=== PATIENT | male | born 1980 | race Caucasian/White ===

== ENCOUNTER 2021-07-26 07:40 | Emergency (ER) | payer BC, SELFPAY ==
--- NOTE | ~2021-07-26 | CT_ITS ---
EXAMINATION: CT abdomen pelvis wo con DATE: 07/26/2021 08:18 INDICATION: Right flank pain. Low back pain. TECHNIQUE: Computed tomography (CT) of the abdomen and pelvis was performed without intravenous contr ast. The dose-length product was 184.74 mGy-cm. Automated exposure control and iterative reconstructi on technique were employed. COMPARISON: None. FINDINGS: Lung bases are unremarkable. Heart size normal. No significant pleural or pericardial effus ion. The liver, spleen, pancreas, there is a distal right ureteral stone measuring 2 mm with mild hyd ronephrosis. There is a second calcification near the UVJ which may also represent a ureteral stone. Bowel gas pattern nonobstructive. There are nonobstructing bilateral renal stones. The liver, spleen, pancreas, adrenal glands are unremarkable. No lymphadenopathy. No significant vasc ular abnormality. There is scoliosis. IMPRESSION: 1. Distal right ureteral stone/s measuring 2 mm with mild right hydronephrosis. 2: Nonobstructing bilateral nephrolithiasis. Reviewed, dictated and finalized at location A.
--- NOTE | ~2021-07-26 | XR_ITS ---
XR abdomen/kub 1V 07/26/2021 09:04 Indication: Kidney stone Procedure: KUB Comparison: 07/26/2021 Findings: There is a small right renal stone. Bowel gas pattern nonobstructive. Lung bases unremarkab le. Mild levocurvature of the lumbar spine. No acute osseous abnormality. Impression: 1: Right nephrolithiasis. Reviewed, dictated and finalized at location A. Impression: 1: Right nephrolithiasis.
[2021-07-26 07:44] VITALS: BP 128/81; PULSE 62; RESP 16; TEMP 36.2; O2SAT 98
--- NOTE | 2021-07-26 07:55 | ED.BACK ---
HPI - Back Pain/Injury General Chief Complaint: Back Pain/Injury Stated Complaint: back pain/vomiting Time Seen by Provider: 07/26/21 07:43 History of Present Illness HPI Narrative: Patient presents emerged department from home for right flank pain. Patient states pain began suddenly while driving to work this morning. The pain is located in the right flank and rates in the right lower abdomen described as sharp and stabbing. Associated with nausea denies any vomiting diarrhea fevers or chills. States he has not anything for the pain denies any previous history of kidney stones Related Data Allergies Allergy/AdvReac Type Severity Reaction Status Date / Time No Known Allergies Allergy Verified 07/26/21 07:44 Review of Systems Review of Systems: Gen.: Denies fevers or chills ENT: Denies congestion Respiratory: Denies shortness of breath or cough CV: Denies chest pain or palpitations GI: See HPI denies burning, urgency, frequency or hematuria Musculoskeletal: Reports right-sided back pain, denies muscle pain Neuro: Denies numbness, tingling, weakness or focal weakness Skin: Denies rash Except as documented, all other systems reviewed and negative [facility] Past Medical History Medical History (Updated 07/26/21 @ 10:16 by Adrian Kirby DO) Patient denies significant medical history Social History Social History (Updated 07/26/21 @ 07:56 by Adrian Kirby DO) Smoking status: Never smoker Exam Narrative: APPEARANCE: No acute distress, nontoxic, resting in bed EYES: EOMI HEENT: Normocephalic, atraumatic, OMM RESPIRATORY: No respiratory distress Clear to auscultation bilaterally with no rhonchi wheezing or rales. CARDIOVASCULAR: Regular rate and rhythm without murmurs rubs or gallops. ABDOMINAL: Soft, nondistended tender palpation right upper quadrant right lower quadrant no tenderness left upper quadrant left lower quadrant no rebound or guarding, right flank tenderness MUSCULOSKELETAl: Moves all extremities. No clubbing, cyanosis or edema. NEURO: Awake and alert. Following commands, speech normal, no focal deficits SKIN:: Warm, dry. No rashes lesions or abrasions PSYCHIATRIC: Normal affect/mood, Course Course Emergency Course: Patient states he is feeling much better at this time Discussed with patient results of workup and diagnosis. Discussed need for follow-up with primary care, proper use of medication, and reasons to return to the emergency department. Patient understands and agrees to current treatment plan Vital Signs Vital signs: Vital Signs Temperature 97.2 F L 07/26/21 07:44 Pulse Rate 62 07/26/21 07:44 Respiratory Rate 16 07/26/21 07:44 Blood Pressure 128/81 07/26/21 07:44 Pulse Oximetry 98 07/26/21 07:44 Temperature 97.2 F L 07/26/21 07:44 Pulse Rate 84 07/26/21 09:19 Respiratory Rate 13 07/26/21 09:19 Blood Pressure 124/79 07/26/21 08:50 Pulse Oximetry 99 07/26/21 09:19 MDM - Back Pain/Injury Lab Data Result diagrams: 07/26/21 07:50 07/26/21 07:50 Labs: Lab Results 07/26/21 07/26/21 07/26/21 Range/Units 07:50 07:50 09:18 WBC 8.5 (4.5-10.0) K/mm3 RBC 4.61 (4.6-6.20) M/mm3 Hgb 14.7 (14.0-18.0) g/dL Hct 44.1 (42.0-52.0) % MCV 95.7 (80-100) fl MCH 31.9 (26-34) pg MCHC 33.3 (32-36) g/dl RDW 12.4 (11.5-14.5) % Plt Count 317 (150-375) k/mm3 MPV 9.7 (7.4-10.4) fl Immature Gran % (Auto) 0.4 (0-0.5) % Neut % (Auto) 57.8 (45.5-73.1) % Lymph % (Auto) 28.8 (18.3-44.2) % [place] % (Auto) 9.3 H (2.6-8.5) % Eos % (Auto) 2.6 (0-4.4) % Baso % (Auto) 1.1 (0.2-1.2) % Lymph # (Auto) 2.44 (0.9-3.2) K/mm3 Fallon # (Auto) 0.8 H (0.1-0.6) K/mm3 Eos # (Auto) 0.2 (0-0.3) K/mm3 Baso # (Auto) 0.1 (0.0-0.1) K/mm3 Abs Immat Gran (auto) 0.03 (0.00-0.031) K/mm3 Absolute Neuts (auto) 4.9 (1.3-6.7) K/mm3 Absolute Nucleated RBC 0
[2021-07-26 07:58] LABS: Basophils Absolute Auto 0.1 K/mm3 (0.0-0.1); Basophils Percent Auto 1.1 % (0.2-1.2); Eosinophils Absolute Auto 0.2 K/mm3 (0-0.3); Eosinophils Percent Auto 2.6 % (0-4.4); Hematocrit 44.1 % (42.0-52.0); Hemoglobin 14.7 g/dL (14.0-18.0); Immature Granulocyte Absolute 0.03 K/mm3 (0.00-0.031); Immature Granulocyte Percent A 0.4 % (0-0.5); Lymphocytes Absolute Auto 2.44 K/mm3 (0.9-3.2); Lymphocytes Percent Auto 28.8 % (18.3-44.2); Mean Corpuscular HGB Conc 33.3 g/dl (32-36); Mean Corpuscular Hemoglobin 31.9 pg (26-34); Mean Corpuscular Volume 95.7 fl (80-100); Mean Platelet Volume 9.7 fl (7.4-10.4); Monocytes Absolute Auto 0.8 K/mm3 (0.1-0.6); Monocytes Percent Auto 9.3 % (2.6-8.5); Neutrophils Absolute Auto 4.9 K/mm3 (1.3-6.7); Neutrophils Percent Auto 57.8 % (45.5-73.1); Platelet Count Result 317 k/mm3 (150-375); Red Blood Count 4.61 M/mm3 (4.6-6.20); Red Cell Distribution Width 12.4 % (11.5-14.5); White Blood Count 8.5 K/mm3 (4.5-10.0)
[2021-07-26] MEDS: SODIUM CHLORIDE 0.9% IV 1,000 ML 999 ML IV CONT (08:07)
[2021-07-26] MEDS: ONDANSETRON INJ 4 MG/2 ML VIAL IV PUSH (08:08)
[2021-07-26] MEDS: KETOROLAC 30 MG/ML VIAL (*BKC) IV PUSH (08:08)
[2021-07-26 08:13] LABS: Alanine Aminotransferase 13 U/L (6-50); Albumin Level 4.6 g/dL (3.5-5.1); Alkaline Phosphatase 67 U/L (38-126); Anion Gap 6 mmol/L (8-16); Aspartate Amino Transferase 28 U/L (17-59); Bilirubin,Total 0.4 mg/dL (0.2-1.3); Blood Urea Nitrogen 12 mg/dL (9-20); Carbon Dioxide 27 mmol/L (22-30); Chloride 104 mmol/L (98-107); Estimated CRCL calculation 80 ml/min; Estimated Glomerular Filt Rate > 60; Glucose 164 mg/dL (65-110); Potassium 4.1 mmol/L (3.4-5.0); Sodium 137 mmol/L (137-145)
[2021-07-26 08:22] VITALS: PULSE 84; RESP 14; O2SAT 100
[2021-07-26 08:30] VITALS: PULSE 70; RESP 12; O2SAT 98
[2021-07-26 08:50] VITALS: BP 124/79; PULSE 53; RESP 20; O2SAT 100
[2021-07-26] MEDS: TAMSULOSIN HCL 0.4 MG CAPSULE PO (08:54)
[2021-07-26] MEDS: MORPHINE SULFATE (*CRX) 4 MG/ML INJ IV PUSH (08:54)
[2021-07-26 09:19] VITALS: PULSE 84; RESP 13; O2SAT 99
[2021-07-26 09:41] LABS: Mucus Urine Rare /lpf; RBC Urine 0-2 /hpf (0-2); WBC Urine 0-3 /hpf
[2021-07-26 10:03] LABS: Appearance Urine Clear (Clear); Bilirubin Urine Negative (Negative); Blood Urine Negative (Negative); Color Urine Yellow (Yellow); Glucose Urine UA Negative (Negative); Ketones Urine Negative (Negative); Leukocyte Esterase Ur Negative LEU/UL (Negative); Nitrate Urine Negative (Negative); Protein Urine 1+ mg/dL (Negative); Specific Grav Ur 1.015 (1.001-1.035); Urobilinogen Urine 0.2 mg/dL (<2.0); pH Urine 8.5 (5.0-9.0)
[2021-07-26 10:04] LABS: Add Urine Microscopic? YES
[2021-07-26 10:25] VITALS: BP 103/69; PULSE 73; RESP 14; O2SAT 99
== END 2021-07-26 10:30 | disposition home or self-care (01) ==
PROVIDERS: Emergency Provider Emergency Medicine
DX: N13.2 Hydronephrosis with renal and ureteral calculous obstruction (principal)
CPT/HCPCS: 36415; 74018; 74176; 80053; 81001; 85025; 96374; 96375; 99284; A9270; J1885; J2270; J2405; J7030